=== PATIENT | female | born 1960 | race Asian ===

== ENCOUNTER 2021-03-19 07:48 | Day surgery (SDC) | payer OTHER ==
[2021-03-12 12:24] VITALS: BMI 19.9
[2021-03-19] MEDS ORDERED: LIDOCAINE HCL/PF 2% SDV 5ML VIAL ONE (08:06)
[2021-03-19] MEDS ORDERED: PROPOFOL 20 ML ONE ×2 (08:06)
[2021-03-19 09:07] VITALS: TEMP 98
[2021-03-19 09:51] VITALS: BP 102/60; PULSE 72
== END 2021-03-19 09:51 | disposition home or self-care (01) ==
LOC: FASU-ENDO 07:48
PROVIDERS: ATTEND Internal Medicine Gastroenterology
PROC: 0DB98ZX Excision of Duodenum, Via Natural or Artificial Opening Endoscopic, Diagnostic (ICD-10-PCS; 2021-03-19)
PROC: 0DB68ZX Excision of Stomach, Via Natural or Artificial Opening Endoscopic, Diagnostic (ICD-10-PCS; 2021-03-19)
PROC: 0DBN8ZX Excision of Sigmoid Colon, Via Natural or Artificial Opening Endoscopic, Diagnostic (ICD-10-PCS; principal; 2021-03-19 08:33)
DX: Z12.11 Encounter for screening for malignant neoplasm of colon (principal); D12.5 Benign neoplasm of sigmoid colon; K29.50 Unspecified chronic gastritis without bleeding; R12 Heartburn